=== PATIENT | male | born 1955 | race Caucasian/White ===

== ENCOUNTER → 2024-09-21 | Outpatient (CLI) | payer OTHER ==
[~2024-09-21] MED LIST: Aspir 8181 MG PO; CYCL10 PO; DICL75ER PO; HYDACE5 PO; HYDR1TAB94 PO; LISI5 PO; PRAV20 PO
== END | disposition home or self-care (01) ==
LOC: LAB SHORT 14:15 → LAB 14:15
DX: L08.0 Pyoderma (principal)
CPT/HCPCS: 87070; 87205